=== PATIENT | female | born 1965 | race Caucasian/White ===

== ENCOUNTER 2018-10-24 15:50 | Emergency (ER) | payer MEDICAID ==
[~2018-10-24] VITALS: Ht 152.4 cm; Wt 57.7 kg
[~2018-10-24 15:50] MED LIST: ATOR20TA86 PO; DOCU-119 PO; GABA-531 PO; LISI10TA PO; METF1000 PO; PIOG15TA6 PO; TRAZ-186 PO; ZIPR60CA2 PO
[2018-10-24 16:41] LABS: GLUCOSE,POINT OF CARE 449 MG/DL (70-110)
[2018-10-24] MEDS ORDERED: KETOROLAC TROMETHAMINE 30 MG/ML VIAL IVP ONE (18:00)
[2018-10-24 19:15] LABS: GLUCOSE,POINT OF CARE 381 MG/DL (70-110)
[2018-10-24 19:23] VITALS: BP 171/76
== END 2018-10-24 19:45 | disposition home or self-care (01) ==
LOC: EMS 15:51
DX: E11.65 Type 2 diabetes mellitus with hyperglycemia (principal); M54.5 Low back pain; G89.29 Other chronic pain; F41.9 Anxiety disorder, unspecified; F32.9 Major depressive disorder, single episode, unspecified; I10 Essential (primary) hypertension; E78.00 Pure hypercholesterolemia, unspecified; F17.210 Nicotine dependence, cigarettes, uncomplicated; F19.90 Other psychoactive substance use, unspecified, uncomplicated; Z79.899 Other long term (current) drug therapy
CPT/HCPCS: 82962; 96374; 99283; J1885